=== PATIENT | female | born 1985 | race Caucasian/White ===

== ENCOUNTER → 2019-11-18 12:57 | Outpatient (CLI) | payer BC, SELFPAY ==
--- NOTE | ~2019-11-18 | MR_ITS ---
EXAMINATION: MR brain/brain stem wo/w con DATE: 11/18/2019 13:39 INDICATION: Headache. Nausea. TECHNIQUE: Magnetic resonance imaging (MRI) of the brain and brainstem was performed without and with 10 mL MultiHance intravenous contrast. Sequences included sagittal and axial T1-weighted FSE, axial diffusion-weighted FS EPI, axial T2*-weighted GRE, axial T2-weighted FLAIR Propeller, and axial T2-we ighted Propeller. Postcontrast sequences included axial and coronal T1-weighted FSE. Apparent diffusi on coefficient (ADC) maps were created. COMPARISON: None. FINDINGS: There is no intracranial hemorrhage, acute infarction, or abnormal intracranial mass lesion . The ventricles are normal in size. The mastoid air cells are normal. The paranasal sinuses are quincy r. The orbits are normal. IMPRESSION: 1. Normal brain. Reviewed, dictated and finalized at location A. ICATION DESIGNER IMPRESSION: 1. Normal brain.
[2019-11-18 13:30] LABS: Blood Urea Nitrogen 10 mg/dL (8-26); Estimated Glomerular Filt Rate > 60
== END ==
PROVIDERS: PCP Family Medicine; Visit Provider Family Medicine
DX: R51 Headache (principal); I95.1 Orthostatic hypotension; R11.2 Nausea with vomiting, unspecified
CPT/HCPCS: 70553; A9577

== ENCOUNTER → 2022-04-02 10:33 | Outpatient (CLI) | payer OTHER, SELFPAY ==
--- NOTE | ~2022-04-02 | MR_ITS ---
EXAMINATION: MR cervical spine wo con DATE: 04/02/2022 11:07 INDICATION: Neck pain. TECHNIQUE: Magnetic resonance imaging (MRI) of the cervical spine was performed without intravenous c ontrast. Sequences included sagittal T2-weighted FSE, sagittal T2-weighted FS FSE, sagittal T1-weight ed FSE, axial MERGE, and axial T2-weighted FSE. COMPARISON: None FINDINGS: Bone alignment is normal. Vertebral body heights and intervertebral disc heights are normal . The spinal cord signal intensity is normal. The following disc levels are specifically discussed: C2-C3: The disc does not extend beyond the endplate margin. There is no uncovertebral joint osteoarth ritis. There is no facet joint osteoarthritis. There is no neural foraminal stenosis. There is no alexa tral canal stenosis. C3-C4: The disc does not extend beyond the endplate margin. There is no uncovertebral joint osteoarth ritis. There is mild left facet joint osteoarthritis. There is no neural foraminal stenosis. There is no central canal stenosis. C4-C5: The disc does not extend beyond the endplate margin. There is no uncovertebral joint osteoarth ritis. There is mild left facet joint osteoarthritis. There is no neural foraminal stenosis. There is no central canal stenosis. C5-C6: The disc does not extend beyond the endplate margin. There is no uncovertebral joint osteoarth ritis. There is mild left facet joint osteoarthritis. There is no neural foraminal stenosis. There is no central canal stenosis. C6-C7: There is a left central protrusion. There is no uncovertebral joint osteoarthritis. There is m ild right facet joint osteoarthritis. There is no neural foraminal stenosis. There is mild central ca nal stenosis. C7-T1: The disc does not extend beyond the endplate margin. There is no uncovertebral joint osteoarth ritis. There is mild right and moderate left facet joint osteoarthritis. There is mild left neural fo raminal stenosis. There is no central canal stenosis. IMPRESSION: 1. Mild cervical spondylosis. Reviewed, dictated and finalized at location B.
== END ==
PROVIDERS: PCP Family Medicine; Visit Provider Family Medicine
DX: R20.2 Paresthesia of skin (principal); M54.2 Cervicalgia; M54.6 Pain in thoracic spine; G56.30 Lesion of radial nerve, unspecified upper limb; M47.812 Spondylosis without myelopathy or radiculopathy, cervical region
CPT/HCPCS: 72141

== ENCOUNTER → 2022-04-28 10:05 | Outpatient (CLI) | payer OTHER, SELFPAY ==
--- NOTE | ~2022-04-28 | MR_ITS ---
EXAMINATION: MR thoracic spine wo con DATE: 04/28/2022 10:35 INDICATION: Paresthesias. Bilateral arm tingling and weakness. TECHNIQUE: Magnetic resonance imaging (MRI) of the thoracic spine was performed without intravenous c ontrast. Sagittal localizer T1-weighted FSE of the cervical spine was obtained. Thoracic spine sequen johnathan included sagittal T2-weighted FSE, sagittal T1-weighted FSE, sagittal T2-weighted FS FSE, and axi al T2-weighted FSE. COMPARISON: Cervical spine MRI 04/02/2022 FINDINGS: There is 3 degrees dextrocurvature of thoracic spine. Vertebral body heights and interverte bral disc heights are normal. The discs do not extend beyond the endplate margins. There is multileve l mild facet joint osteoarthritis. No neural foraminal stenosis. No central canal stenosis. The spina l cord signal intensity is normal. IMPRESSION: 1. Mild thoracic facet joint osteoarthritis. Reviewed, dictated and finalized at location A.
== END ==
PROVIDERS: PCP Family Medicine; Visit Provider Family Medicine
DX: G56.30 Lesion of radial nerve, unspecified upper limb (principal); R20.2 Paresthesia of skin; M51.34 Other intervertebral disc degeneration, thoracic region
CPT/HCPCS: 72146

== ENCOUNTER 2022-06-04 09:19 | Outpatient (CLI) | payer OTHER, SELFPAY ==
--- NOTE | 2022-06-04 11:00 | NEURO_ITS ---
Impression: # Complains of bilateral hand paresthesia extending up arms. # This is a normal electrodiagnostic study. # There is no evidence of Carpal Tunnel Syndrome or ulnar neuropathy. # Normal needle/EMG exam. # Clinical correlation recommended. Nerve Conduction Studies Anti Sensory Summary Table Stim Site NR Peak (ms) P-T Amp (?V) Site1 Site2 Delta-P (ms) Dist (cm) Robert (m/s) Left Median Anti Sensory (2-3nd Digit) Wrist 3.3 100.9 Wrist 2-3nd Digit 3.3 14.0 42 Wrist 3.2 108.5 Wrist 2-3nd Digit 3.3 14.0 42 Right Median Anti Sensory (2-3nd Digit) Wrist 3.0 107.2 Wrist 2-3nd Digit 3.0 14.0 47 Wrist 3.1 107.6 Wrist 2-3nd Digit 3.0 14.0 47 Left Radial Anti Sensory (Base 1st Digit) Wrist 2.3 107.9 Wrist Base 1st Digit 2.3 0.0 Right Radial Anti Sensory (Base 1st Digit) Wrist 2.2 79.2 Wrist Base 1st Digit 2.2 0.0 Left Ulnar Anti Sensory (5th Digit) Wrist 2.9 99.0 Wrist 5th Digit 2.9 14.0 48 Right Ulnar Anti Sensory (5th Digit) Wrist 3.1 90.5 Wrist 5th Digit 3.1 14.0 45 Motor Summary Table Stim Site NR Onset (ms) O-P Amp (mV) Site1 Site2 Delta-0 (ms) Dist (cm) Robert (m/s) Left Median Motor (Abd Poll Brev) Wrist 2.7 9.1 Elbow Wrist 3.2 18.0 56 Elbow 5.9 8.2 Right Median Motor (Abd Poll Brev) Wrist 2.9 3.9 Elbow Wrist 3.1 18.0 58 Elbow 6.0 4.1 Left Ulnar Motor (Abd Dig Minimi) Wrist 2.6 5.2 A Elbow Wrist 4.1 24.0 59 A Elbow 6.7 4.7 B Elbow Wrist 2.5 15.0 60 B Elbow 5.1 4.9 Right Ulnar Motor (Abd Dig Minimi) Wrist 2.3 7.5 A Elbow Wrist 3.7 24.0 65 A Elbow 6.0 5.4 B Elbow Wrist 2.6 17.0 65 B Elbow 4.9 4.3 F Wave Studies NR F-Lat (ms) L-R F-Lat (ms) Left Median (Mrkrs) (Abd Poll Brev) 24.01 0.38 Right Median (Mrkrs) (Abd Poll Brev) 24.39 0.38 Left Ulnar (Mrkrs) (Abd Dig Min) 24.77 0.77 Right Ulnar (Mrkrs) (Abd Dig Min) 24.00 0.77 EMG Side Muscle Nerve Root Ins Act Fibs Amp Dur Recrt Comment Right 1stDorInt Ulnar C8-T1 Nml Nml Nml Nml Nml Right Ext Indicis Radial (Post Int) C7-8 Nml Nml Nml Nml Nml Right Ext Digitorum Radial (Post Int) C7-8 Nml Nml Nml Nml Nml Right BrachioRad Radial C5-6 Nml Nml Nml Nml Nml Right PronatorTeres Median C6-7 Nml Nml Nml Nml Nml Right Abd Poll Brev Median C8-T1 Nml Nml Nml Nml Nml Left 1stDorInt Ulnar C8-T1 Nml Nml Nml Nml Nml Left Ext Indicis Radial (Post Int) C7-8 Nml Nml Nml Nml Nml Left Ext Digitorum Radial (Post Int) C7-8 Nml Nml Nml Nml Nml Left BrachioRad Radial C5-6 Nml Nml Nml Nml Nml Left PronatorTeres Median C6-7 Nml Nml Nml Nml Nml Left Abd Poll Brev Median C8-T1 Nml Nml Nml Nml Nml MTDD
== END 2022-06-04 09:20 | disposition home or self-care (01) ==
PROVIDERS: PCP Family Medicine; Visit Provider Family Medicine
DX: G56.30 Lesion of radial nerve, unspecified upper limb (principal); R20.2 Paresthesia of skin
CPT/HCPCS: 95886; 95911

== ENCOUNTER → 2023-04-03 08:07 | Outpatient (CLI) | payer OTHER, SELFPAY ==
--- NOTE | ~2023-04-03 | CT_ITS ---
EXAMINATION: CTA chest DATE: 04/04/2023 16:50 CDT INDICATION: Paresthesias. Evaluate for subclavian artery stenosis. TECHNIQUE: Computed tomographic angiography (CTA) of the chest was performed with 100 mL Omnipaque-35 0 intravenous contrast. The dose-length product was 184.86 mGy-cm. Maximum intensity projection 3D-re constructions of the aorta and other arteries were constructed by the technologist on a separate work station. Automated exposure control and iterative reconstruction technique were employed. COMPARISON: None. FINDINGS: Aorta is within normal limits without evidence for aneurysm or dissection. Heart size jade l. No significant pleural or pericardial effusion. No central pulmonary embolism. No evidence for aor tic aneurysm or dissection. The great vessels are within normal limits. No evidence for subclavian ar yoan stenosis. No thoracic lymphadenopathy. No focal airspace consolidation. No endobronchial lesions . No pneumothorax. IMPRESSION: 1. No acute cardiopulmonary disease. No evidence for subclavian artery stenosis. Consider correlation with duplex Doppler examination of the upper extremity arteries. Reviewed, dictated and finalized at location A. IMPRESSION: 1. No acute cardiopulmonary disease. No evidence for subclavian artery stenosis . Consider correlation with duplex Doppler examination of the upper extremity a rteries.
== END ==
PROVIDERS: PCP Family Medicine; Visit Provider Family Medicine
DX: R68.89 Other general symptoms and signs (principal); Q68.1 Congenital deformity of finger(s) and hand; R20.2 Paresthesia of skin
CPT/HCPCS: 71275; Q9967

== ENCOUNTER → 2023-07-13 12:48 | Outpatient (CLI) | payer OTHER, SELFPAY ==
--- NOTE | ~2023-07-13 | MR_ITS ---
EXAMINATION: MR brain/brain stem wo/w con DATE: 07/13/2023 13:30 INDICATION: Paresthesias. Occipital neuralgia. TECHNIQUE: Magnetic resonance imaging (MRI) of the brain and brainstem was performed without and with 12 mL MultiHance intravenous contrast. COMPARISON: Brain MRI 11/18/2019 FINDINGS: There is no intracranial hemorrhage, acute infarction, or abnormal intracranial mass lesion . The ventricles are normal in size. The paranasal sinuses are clear. The orbits are normal. The mast oid air cells are normal. IMPRESSION: 1. Normal brain. Reviewed, dictated and finalized at location A. IMPRESSION: 1. Normal brain.
== END ==
PROVIDERS: PCP Family Medicine; Visit Provider Family Medicine
DX: R20.2 Paresthesia of skin (principal); M54.81 Occipital neuralgia; R68.89 Other general symptoms and signs; R23.2 Flushing; R41.3 Other amnesia; R53.83 Other fatigue
CPT/HCPCS: 70553; A9577

== ENCOUNTER 2023-08-14 08:07 | Outpatient (CLI) | payer OTHER, SELFPAY ==
--- NOTE | ~2023-08-14 | XR_ITS ---
EXAMINATION: XR UGIAC wo kub DATE: 08/14/2023 08:56 INDICATION: Neck pain and chills after eating TECHNIQUE: The patient drank thick barium, gas-producing crystals, and thin barium. A total of 615 fl uoroscopic images of the esophagus, stomach, and proximal small bowel were obtained. Fluoroscopy expo sure time was 1.4 minutes. COMPARISON: None. FINDINGS: The esophagus is normal without mass or stricture. Esophageal motility is normal. There is no hiatal hernia. There was no gastroesophageal reflux with provocative maneuvers. The stomach and pr oximal small bowel are normal. IMPRESSION: 1. Normal upper GI study. Reviewed, dictated and finalized at location A. IMPRESSION: 1. Normal upper GI study.
== END 2023-08-14 08:08 | disposition home or self-care (01) ==
LOC: ANHIMG 08:12
PROVIDERS: PCP Family Medicine; Visit Provider Family Medicine
DX: M54.2 Cervicalgia (principal); R68.89 Other general symptoms and signs; R13.10 Dysphagia, unspecified; R20.2 Paresthesia of skin; R53.83 Other fatigue
CPT/HCPCS: 74246

== ENCOUNTER 2024-05-23 09:35 | Outpatient (CLI) | payer OTHER, SELFPAY ==
--- NOTE | ~2024-05-23 | US_ITS ---
EXAMINATION: US pelvic complete DATE: 05/23/2024 09:55 INDICATION: Secondary dysmenorrhea. TECHNIQUE: Multiple transabdominal sonographic images of the pelvis were obtained. COMPARISON: None. FINDINGS: The uterus measures 10.2 x 4.4 x 5.8 cm. There is no free fluid in the pelvis. The endometrial comple x measures 8 mm in thickness. The right ovary measures 3.8 x 1.4 x 3.7 cm. The left ovary measures 2. 9 x 2.2 x 2.6 cm. There is normal vascular flow in the ovaries. IMPRESSION: 1. Normal pelvis. Reviewed, dictated and finalized at location A. IMPRESSION: 1. Normal pelvis.
== END 2024-05-23 09:36 ==
LOC: MICIMG 09:36
PROVIDERS: PCP Nurse Practitioner Obstetrics & Gynecology; Visit Provider Nurse Practitioner Obstetrics & Gynecology
DX: N94.5 Secondary dysmenorrhea (principal)
CPT/HCPCS: 76856